=== PATIENT | female | born 1965 | race Caucasian/White ===

== ENCOUNTER → 2016-07-11 | Outpatient (CLI) | payer OTHER ==
[2016-07-11 08:50] LABS: BASOPHIL % 0.9 % (0-2); PLATELET COUNT 377 x10^3mcL (130-400)
[2016-07-11 09:20] LABS: ALBUMIN 3.8 g/dL (3.4-5.0); ALKALINE PHOSPHATASE 59 U/L (46-116); ALT/SGPT 21 U/L (14-59); AST/SGOT 17 U/L (15-37); BILIRUBIN TOTAL 0.3 mg/dL (0.20-1.00); CHLORIDE SERUM 103 mmol/L (98-107); CHOLESTEROL 196 mg/dL (<200); CHOLESTEROL/HDL RATIO 3.3; CREATININE SERUM 0.8 mg/dL (0.6-1.0); GFR1 > 60 mL/min; GLUCOSE SERUM 99 mg/dL (74-106); HDL CHOLESTEROL 60 mg/dL (40-60); POTASSIUM SERUM 4.1 mmol/L (3.5-5.1); SODIUM SERUM 139 mmol/L (136-145); TOTAL PROTEIN, SERUM 7.7 g/dL (6.4-8.2); TRIGLYCERIDES 62 mg/dL (<150)
[2016-07-12 06:28] LABS: VITAMIN D 25-HYDROXY 27.8 ng/mL (30.0-100.0)
== END | disposition home or self-care (01) ==
LOC: LB 08:05
DX: E04.1 Nontoxic single thyroid nodule (principal); I10 Essential (primary) hypertension; D64.9 Anemia, unspecified; E78.4 Other hyperlipidemia; E03.9 Hypothyroidism, unspecified; E55.9 Vitamin D deficiency, unspecified; R73.09 Other abnormal glucose

== ENCOUNTER → 2016-09-13 | Outpatient (CLI) | payer OTHER | END | disposition home or self-care (01) | LOC: MA 11:07 | PROC: BH02ZZZ Plain Radiography of Bilateral Breasts (ICD-10-PCS; principal; 2016-09-13) | DX: Z12.31 Encounter for screening mammogram for malignant neoplasm of breast (principal) | CPT/HCPCS: G0202 ==

== ENCOUNTER → 2017-12-06 | Outpatient (CLI) | payer OTHER | END | disposition home or self-care (01) | LOC: US 08:37 | PROC: BH4CZZZ Ultrasonography of Head and Neck (ICD-10-PCS; principal; 2017-12-06) | PROC: BG44ZZZ Ultrasonography of Thyroid Gland (ICD-10-PCS; 2017-12-06) | DX: R22.1 Localized swelling, mass and lump, neck (principal); M79.671 Pain in right foot ==

== ENCOUNTER → 2018-01-04 | Outpatient (CLI) | payer OTHER | END | disposition home or self-care (01) | LOC: MA 13:58 | PROC: BH02ZZZ Plain Radiography of Bilateral Breasts (ICD-10-PCS; principal; 2018-01-04) | DX: Z12.31 Encounter for screening mammogram for malignant neoplasm of breast (principal) | CPT/HCPCS: 77067 ==

== ENCOUNTER → 2018-08-22 | Outpatient (CLI) | payer OTHER ==
[2018-08-22 09:01] LABS: ALKALINE PHOSPHATASE 49 U/L (46-116); ALT/SGPT 29 U/L (14-59); AST/SGOT 15 U/L (15-37); BILIRUBIN TOTAL 0.4 mg/dL (0.20-1.00); CALCIUM 9.4 mg/dL (8.5-10.1); CARBON DIOXIDE 27.9 mmol/L (21-32); CHLORIDE SERUM 106 mmol/L (98-107); CREATININE SERUM 0.8 mg/dL (0.6-1.0); GFR1 > 60 mL/min; GLUCOSE SERUM 108 mg/dL (74-106); HDL CHOLESTEROL 58 mg/dL (40-60); POTASSIUM SERUM 4.2 mmol/L (3.5-5.1); SODIUM SERUM 143 mmol/L (136-145); TOTAL PROTEIN, SERUM 7.8 g/dL (6.4-8.2); TRIGLYCERIDES 84 mg/dL (<150)
[2018-08-22 09:04] LABS: CHOLESTEROL 220 mg/dL (<200); CHOLESTEROL/HDL RATIO 3.8
[2018-08-22 09:20] LABS: T3 TOTAL 1.16 ng/mL
[2018-08-22 09:33] LABS: BASOPHIL % 0.8 % (0-2); PLATELET COUNT 335 x10^3mcL (130-400); RED CELL DISTRIBUTION WIDTH 13.6 % (11.5-14.5)
[2018-08-22 09:38] LABS: FREE THYROXINE INDEX 2.9 ug/dL (1.4-4.5); T4(THYROXINE) 8.6 ug/dL (4.7-13.3)
== END | disposition home or self-care (01) ==
LOC: LB 08:03
DX: I10 Essential (primary) hypertension (principal); D64.9 Anemia, unspecified; E03.9 Hypothyroidism, unspecified; E55.9 Vitamin D deficiency, unspecified; E11.9 Type 2 diabetes mellitus without complications; M06.9 Rheumatoid arthritis, unspecified
CPT/HCPCS: 84439; 86431

== ENCOUNTER → 2019-03-28 | Outpatient (CLI) | payer OTHER ==
[2019-03-28 11:59] LABS: PLATELET COUNT 374 x10^3mcL (130-400); RED CELL DISTRIBUTION WIDTH 13.7 % (11.5-14.5); UA SPECIFIC GRAVITY >=1.030 (1.005-1.035); microscopic required? YES; urine erythrocyte 1+ (NEGATIVE)
[2019-03-28 12:16] LABS: ALKALINE PHOSPHATASE 79 U/L (46-116); ALT/SGPT 29 U/L (14-59); AST/SGOT 22 U/L (15-37); BILIRUBIN TOTAL 0.38 mg/dL (0.20-1.00); CALCIUM 9.2 mg/dL (8.5-10.1); CARBON DIOXIDE 27.1 mmol/L (21-32); CHLORIDE SERUM 104 mmol/L (98-107); CREATININE SERUM 0.8 mg/dL (0.6-1.0); GFR1 > 60 mL/min; GLUCOSE SERUM 90 mg/dL (74-106); HDL CHOLESTEROL 58 mg/dL (40-60); POTASSIUM SERUM 3.9 mmol/L (3.5-5.1); SODIUM SERUM 140 mmol/L (136-145); TRIGLYCERIDES 68 mg/dL (<150)
[2019-03-28 12:19] LABS: CHOLESTEROL 228 mg/dL (<200); CHOLESTEROL/HDL RATIO 3.9; TOTAL PROTEIN, SERUM 8.4 g/dL (6.4-8.2)
== END | disposition home or self-care (01) ==
LOC: LB 11:21
DX: Z00.00 Encounter for general adult medical examination without abnormal findings (principal)

== ENCOUNTER → 2019-04-03 | Outpatient (CLI) | payer OTHER | END | disposition home or self-care (01) | LOC: MA 07:29 | PROC: BG44ZZZ Ultrasonography of Thyroid Gland (ICD-10-PCS; principal; 2019-04-03) | PROC: BH02ZZZ Plain Radiography of Bilateral Breasts (ICD-10-PCS; 2019-04-03) | DX: E04.1 Nontoxic single thyroid nodule (principal); Z12.31 Encounter for screening mammogram for malignant neoplasm of breast | CPT/HCPCS: 77067 ==

== ENCOUNTER 2019-05-05 14:23 | Emergency (ER) | payer OTHER, SELFPAY ==
[~2019-05-05] VITALS: Ht 162.6 cm; Wt 78.6 kg
[2019-05-05 14:33] VITALS: Ht 162.6 cm; Wt 78.6 kg
[2019-05-05 15:23] VITALS: BP 179/100
== END 2019-05-05 15:23 | disposition home or self-care (01) ==
LOC: ED 14:23
DX: J06.9 Acute upper respiratory infection, unspecified (principal); Z88.0 Allergy status to penicillin; Z03.818 Encounter for observation for suspected exposure to other biological agents ruled out

== ENCOUNTER → 2019-07-08 | Outpatient (CLI) | payer OTHER ==
[2019-07-09 09:05] LABS: RHEUMATOID ARTHRITIS FACTOR <10.0 IU/mL (0.0-13.9)
== END | disposition home or self-care (01) ==
LOC: LB 07:38
PROC: BH40ZZZ Ultrasonography of Right Breast (ICD-10-PCS; principal; 2019-07-08)
DX: N63.0 Unspecified lump in unspecified breast (principal)
CPT/HCPCS: 76642; 86225; 86431